=== PATIENT | male | born 1995 | race American Indian/Alaskan Native ===

== ENCOUNTER 2018-11-23 23:51 | Emergency (ER) | payer SELFPAY ==
[2018-11-24 00:15] LABS: Basophils # (Auto) 0.1 K/mm3 (0.0-0.1); Basophils % (Auto) 1.2 % (0.0-1.8); Eosinophils # (Auto) 0.1 K/mm3 (0.0-0.4); Eosinophils % (Auto) 0.7 % (0.0-4.3); Hematocrit 45.3 % (35.5-45.6); Hemoglobin 15.4 gm/dl (11.8-15.2); Lymphocytes # (Auto) 1.8 K/mm3 (1.2-5.4); Lymphocytes % (Auto) 22.2 % (13.4-35.0); Mean Corpuscular HGB Conc 34 % (32-34); Mean Corpuscular Volume 92 fl (84-94); Monocytes # (Auto) 0.5 K/mm3 (0.0-0.8); Platelet Count 390 K/mm3 (140-440); Red Blood Count 4.95 M/mm3 (3.65-5.03); Red Cell Distribution Width 12.9 % (13.2-15.2)
[2018-11-24 00:38] LABS: Alanine Aminotransferase 35 units/L (7-56); Albumin 4.6 g/dL (3.9-5); BUN/Creatinine Ratio 20; Blood Urea Nitrogen 20 mg/dL (9-20); Hemolysis Index 4
[2018-11-24 01:32] LABS: Bilirubin,Urine NEG (Negative); Blood,Urine NEG (Negative); Color,Urine Straw (Yellow); Mucus,Urine FEW /HPF; Protein,Urine <15 mg/dL mg/dL (Negative); Urobilinogen,Urine < 2.0 mg/dL (<2.0); WBC,Urine < 1.0 /HPF (0.0-6.0)
[2018-11-24] MEDS ORDERED: HumuLIN R IV ONE ×2 (02:37→04:01)
[2018-11-24] MEDS ORDERED: NACL 0.9% 1000 ML 1,000 ML IV ONE (02:37)
--- NOTE | 2018-11-24 02:42 | Emergency Department Report ---
ED General Adult HPI - General Chief complaint: Eye Problems Stated complaint: BLURRY VISION/NAUSEA Time Seen by Provider: 11/24/18 02:31 Source: patient Mode of arrival: Ambulatory Limitations: No Limitations - History of Present Illness Initial comments: Patient is 23 years old male with history of diabetes on 70/30 insulin. Patient presented to the ER stating that he has been having blurry vision for the last few days. Patient found to have a blood glucose of 500. Patient denied any nausea or vomiting. No chest pain, abdominal pain or diarrhea. Patient also denied any fever or chills. - Related Data Allergies Allergy/AdvReac Type Severity Reaction Status Date / Time ceftriaxone [From Rocephin] Allergy Unknown Verified 11/23/18 23:58 clarithromycin [From Biaxin] Allergy Unknown Verified 11/23/18 23:58 morphine Allergy Unknown Verified 11/23/18 23:58 ED Review of Systems ROS: Stated complaint: BLURRY VISION/NAUSEA Other details as noted in HPI Comment: All other systems reviewed and negative Constitutional: denies: chills, fever Respiratory: denies: orthopnea, shortness of breath, SOB with exertion Cardiovascular: denies: chest pain, palpitations Gastrointestinal: denies: abdominal pain, nausea, vomiting, diarrhea, constipation, hematemesis, hematochezia Neurological: denies: headache, weakness, numbness, paresthesias, confusion, abnormal gait ED Past Medical Hx - Past Medical History Previous Medical History?: Yes Hx Diabetes: Yes Hx Seizures: Yes - Surgical History Past Surgical History?: Yes Additional Surgical History: left fibia - Social History Smoking Status: Never Smoker Substance Use Type: None ED Physical Exam - General Limitations: No Limitations General appearance: alert, in no apparent distress - Head Head exam: Present: atraumatic, normocephalic, normal inspection - Eye Eye exam: Present: normal appearance - ENT ENT exam: Present: normal exam, normal orophraynx, mucous membranes moist - Neck Neck exam: Present: normal inspection, full ROM. Absent: tenderness, meni ngismus, lymphadenopathy, thyromegaly - Respiratory Respiratory exam: Present: normal lung sounds bilaterally - Cardiovascular Cardiovascular Exam: Present: regular rate, normal rhythm, normal heart sounds - GI/Abdominal GI/Abdominal exam: Present: soft, normal bowel sounds. Absent: distended, tenderness, guarding, rebound, rigid, organomegaly, mass, bruit, pulsatile mass, hernia - Extremities Exam Extremities exam: Present: normal inspection, full ROM, normal capillary refill. Absent: tenderness, pedal edema, joint swelling, calf tenderness - Back Exam Back exam: Present: normal inspection, full ROM. Absent: CVA tenderness (R), CVA tenderness (L), muscle spasm, paraspinal tenderness, vertebral tenderness - Neurological Exam Neurological exam: Present: alert, oriented X3, CN II-XII intact, normal gait, reflexes normal - Psychiatric Psychiatric exam: Present: normal mood - Skin Skin exam: Present: warm, intact, normal color ED Course Vital Signs 11/23/18 11/24/18 23:55 02:30 Temperature 98.2 F Pulse Rate 104 H Respiratory 18 16 Rate Blood Pressure 118/84 O2 Sat by Pulse 98 98 Oximetry ED Medical Decision Making - Lab Data Result diagrams: 11/24/18 00:03 11/24/18 00:03 - Medical Decision Making Patient is 23 years old male with history of diabetes on 70/30 insulin. Patient presented to the ER stating that he has been having blurry vision for the last few days. Patient found to have a blood glucose of 500. Patient denied any nausea or vomiting. No chest pain, abdominal pain or diarrhea. Patient also denied any fever or chills. Patient received 1 L of normal saline and 12 units of regular insulin. The patient blood sugar significantly improved. Patient given a prescription for Humalog and advised to follow-up with his primary care physician in the next 2-3 days and to return to the ER if symptoms are not improved. Critical care attestation.: If time is entered above; I have spent that time in minutes in the direct care of this critically ill patient, excluding procedure time. ED Disposition Clinical Impression: Hyperglycemia due to type 1 diabetes mellitus Disposition: DC-01 TO HOME OR SELFCARE Is pt being admited?: No Condition: Stable Instructions: Diabetes Mellitus Type 2 in Adults (ED) Referrals: PRIMARY CARE, [Primary Care Provider] - 3-5 Days
[2018-11-24 06:22] VITALS: BP 122/76
== END 2018-11-24 05:49 | disposition home or self-care (01) ==
LOC: ED 23:51
DX: E10.65 Type 1 diabetes mellitus with hyperglycemia (principal)
CPT/HCPCS: 36415; 80053; 81001; 82805; 82962; 85025; 96374; 96376; 99283; J7030; J1815

== ENCOUNTER 2020-12-23 18:06 | Emergency (ER) | payer SELFPAY ==
[2020-12-23] MEDS ORDERED: KETOROLAC 10 MG TAB PO ONE (19:23)
--- NOTE | 2020-12-23 19:28 | Emergency Department Report ---
ED General Adult HPI - General Chief complaint: Dental/Oral Stated complaint: WISDOM TOOTH PAIN Time Seen by Provider: 12/23/20 18:54 Source: patient Mode of arrival: Ambulatory Limitations: No Limitations - History of Present Illness Initial comments: 25-year-old -[place] male patient presents with complaints of left lower dental pain for the past few weeks worsening over the past few days. He reports he is scheduled to see a dental specialist tomorrow to have his wisdom teeth pulled. He rates his pain as a 9/10 in severity. He states his pain is not improving with ibuprofen. Drug allergies include Ceftin and penicillins. Patient denies any fever/chills/sweats or difficulty opening his jaw - Related Data Previous Rx's Medication Instructions Recorded Last Taken Type Lispro Insulin [HumaLOG] 10 unit SQ AC #5 vial 11/24/18 Unknown Rx Acetaminophen/Codeine [Tylenol 1 tab PO Q8H PRN #10 tab 12/23/20 Unknown Rx /Codeine # 3 tab] Clindamycin [Clindamycin CAP] 300 mg PO Q6H 10 Days #40 capsule 12/23/20 Unknown Rx Naproxen 500 mg PO BID PRN #20 tablet 12/23/20 Unknown Rx Allergies Allergy/AdvReac Type Severity Reaction Status Date / Time ceftriaxone [From Rocephin] Allergy Unknown Verified 11/23/18 23:58 clarithromycin [From Biaxin] Allergy Unknown Verified 11/23/18 23:58 morphine Allergy Unknown Verified 11/23/18 23:58 ED Review of Systems ROS: Stated complaint: WISDOM TOOTH PAIN Other details as noted in HPI Constitutional: denies: chills, fever, malaise ENT: dental pain. denies: throat pain Respiratory: denies: cough, shortness of breath Cardiovascular: denies: chest pain Skin: denies: rash, lesions ED Past Medical Hx - Past Medical History Previous Medical History?: Yes Hx Diabetes: Yes Hx Seizures: Yes - Surgical History Past Surgical History?: Yes Additional Surgical History: left fibia - Social History Smoking Status: Never Smoker Substance Use Type: None - Medications Home Medications: Home Medications Medication Instructions Recorded Confirmed Last Taken Type Lispro Insulin [HumaLOG] 10 unit SQ AC #5 vial 11/24/18 Unknown Rx Acetaminophen/Codeine [Tylenol 1 tab PO Q8H PRN #10 tab 12/23/20 Unknown Rx /Codeine # 3 tab] Clindamycin [Clindamycin CAP] 300 mg PO Q6H 10 Days #40 capsule 12/23/20 Unknown Rx Naproxen 500 mg PO BID PRN #20 tablet 12/23/20 Unknown Rx ED Physical Exam - General Limitations: No Limitations General appearance: alert, in no apparent distress - Head Head exam: Present: atraumatic, normocephalic - Eye Eye exam: Present: normal appearance - Expanded ENT Exam Expanded Mouth exam: Absent: drooling, trismus, muffled voice Teeth exam: Present: dental caries 1 - Dental Tenderness (Deep cavity noted with surrounding erythema and te nderness to palpation; no overlying facial swelling noted or obvious dental abscess) - Respiratory Respiratory exam: Absent: respiratory distress - Cardiovascular Cardiovascular Exam: Present: regular rate - Neurological Exam Neurological exam: Present: alert, oriented X3 - Psychiatric Psychiatric exam: Present: normal affect, normal mood - Skin Skin exam: Present: warm, dry, intact, normal color. Absent: rash ED Medical Decision Making - Medical Decision Making 25-year-old -[place] male patient presents with complaints of left lower dental pain for the past few weeks worsening over the past few days. He reports he is scheduled to see a dental specialist tomorrow to have his wisdom teeth pulled. He rates his pain as a 9/10 in severity. He states his pain is not improving with ibuprofen. Drug allergies include Ceftin and penicillins. Patient denies any fever/chills/sweats or difficulty opening his jaw Will cover for dental infection with clindamycin. Patient to follow-up with dental specialist as scheduled tomorrow. He is well-appearing and stable for discharge home. Discussed strict return precautions in detail with patient who verbalized understanding. Critical care attestation.: If time is entered above; I have spent that time in minutes in the direct care of this critically ill patient, excluding procedure time. ED Disposition Clinical Impression: Dental infection Disposition: 01 HOME / SELF CARE / HOMELESS Is pt being admited?: No Condition: Stable Instructions: Dental Abscess, Preventive Dental Care, Adult Additional Instructions: Please follow-up with your dental specialist as scheduled tomorrow Prescriptions: Clindamycin [Clindamycin CAP] 300 mg PO Q6H 10 Days #40 capsule Naproxen 500 mg PO BID PRN #20 tablet PRN Reason: Pain, Moderate (4-6) Acetaminophen/Codeine [Tylenol /Codeine # 3 tab] 1 tab PO Q8H PRN #10 tab PRN Reason: Pain , Severe (7-10)
[2020-12-23 19:44] VITALS: BP 109/72
[2020-12-23] MEDS ORDERED: predniSONE 20 MG TAB PO NR (20:00)
== END 2020-12-23 20:04 | disposition home or self-care (01) ==
LOC: ED 18:06
DX: K04.7 Periapical abscess without sinus (principal); E11.9 Type 2 diabetes mellitus without complications; Z86.69 Personal history of other diseases of the nervous system and sense organs; Z79.899 Other long term (current) drug therapy
CPT/HCPCS: 99282